=== PATIENT | male | born 1995 | race Caucasian/White ===

== ENCOUNTER 2016-12-05 05:15 | Emergency (ER) | payer MEDICAID ==
[~2016-12-05] VITALS: Ht 165.1 cm; Wt 57.2 kg
[2016-12-05 05:20] VITALS: BP 134/74
--- NOTE | 2016-12-05 05:20 | NUR ---
CALLED PT NAME X3. NO ONE IN WR AT THIS TIME.
--- NOTE | 2016-12-05 05:43 | NUR ---
CALLED PT NAME X 3. WAIT NOT IN WAITING ROOM AT THIS TIME.
== END 2016-12-05 06:17 | disposition home or self-care (01) ==
LOC: ER 05:16
DX: M54.5 Low back pain (principal); F17.200 Nicotine dependence, unspecified, uncomplicated
CPT/HCPCS: A4606; Z7502; Z7610